=== PATIENT | female | born 1975 | race Caucasian/White ===

== ENCOUNTER 2018-02-08 12:01 | Outpatient (CLI) | payer OTHER | END 2018-02-08 12:08 | disposition home or self-care (01) | LOC: MAMO-SONO 12:01 | DX: Z13.1 Encounter for screening for diabetes mellitus (principal); N60.11 Diffuse cystic mastopathy of right breast; N60.12 Diffuse cystic mastopathy of left breast ==

== ENCOUNTER 2020-07-19 12:58 | Outpatient (CLI) | payer OTHER | END 2020-07-19 13:32 | disposition home or self-care (01) | LOC: NUCLEAR 12:58 | DX: M81.0 Age-related osteoporosis without current pathological fracture (principal); R00.2 Palpitations ==